=== PATIENT | female | born 1945 | race Caucasian/White ===

== ENCOUNTER 2019-09-23 11:21 | Inpatient (IN) | payer MEDICARE, OTHER ==
[~2019-09-23] VITALS: Ht 152.4 cm; Wt 43.6 kg
[2019-09-23] VITALS (14 sets, daily range): BP systolic 120–172; BP diastolic 68–87; Ht 152.4 cm; Wt 43.6 kg
[2019-09-23] MEDS ORDERED: BAYER CHEWABLE81 MG PO (11:40)
[2019-09-23] MEDS ORDERED: DETROL LA4 MG PO (11:40)
[2019-09-23] MEDS ORDERED: TENORMIN25 MG PO (11:41)
[2019-09-23] MEDS ORDERED: METOPROLOL TART25 MG PO (11:41)
[2019-09-23] MEDS ORDERED: REMERON15 MG PO (11:41)
[2019-09-23] MEDS ORDERED: CYMBALTA30 MG PO (11:41)
[2019-09-23] MEDS ORDERED: CELEBREX 100 M100 MG PO (11:42)
[2019-09-23] MEDS ORDERED: AMBIEN5 MG PO (11:42)
[2019-09-23] MEDS ORDERED: KLOR-CON 1010 MEQ PO (11:43)
--- NOTE | 2019-09-23 13:00 | NUR ---
PT RECEIVED. VSS. DR MONTGOMERY AT BEDSIDE NEW ORDERS RECEIVED. FAMILYAT BEDSIDE GIVEN UDPATE. WILL CONTINUE TO MONITOR
[2019-09-23] MEDS ORDERED: KLONOPIN1 MG PO (13:10)
[2019-09-23] MEDS ORDERED: OXYCONTIN10 MG PO (13:10)
[2019-09-23 15:14] LABS: ANION GAP 15.6 mmol/L (8-16); CALCIUM 9.5 mg/dL (8.5-10.1); CARBON DIOXIDE 26.9 mmol/L (21.0-32.0); CREATININE - SERUM 1.5 mg/dL (0.6-1.3); POTASSIUM - SERUM 3.5 mmol/L (3.5-5.1)
--- NOTE | 2019-09-23 15:20 | NUR ---
DR DICK AT BEDSIDE NEW ORDERS RECEIVED. NO NEW CHANGES WILL CONTINUE TO MONITOR
[2019-09-23 17:12] LABS: ANION GAP 19.7 mmol/L (8-16); CALCIUM 9.8 mg/dL (8.5-10.1); CARBON DIOXIDE 21.6 mmol/L (21.0-32.0); CREATININE - SERUM 1.4 mg/dL (0.6-1.3); POTASSIUM - SERUM 3.3 mmol/L (3.5-5.1)
--- NOTE | 2019-09-23 17:20 | NUR ---
DR WALTON AT BEDSIDE GIVEN UDPATE. NEW ORDERS RECEIVED. VSS WILL CONTINUE TO MONITOR
--- NOTE | 2019-09-23 19:00 | NUR ---
PT REPORT RECEIVED FROM DAY SHIFT NURSE. PT LYING IN BED ON VENTILLATOR. NO PURPOSEFUL MOVEMENTS NOTICED. SHIFT ASSESSMENT COMPLETED. WILL CONTINUE TO MONITOR
--- NOTE | 2019-09-23 19:35 | NUR ---
PT FAMILY MEMEBER CALLED TO CHECK UP ON PT. UPDATE GIVEN
--- NOTE | 2019-09-23 21:00 | NUR ---
PT RESTING IN BED. FAMILY PRESENT AT BEDSIDE. NO QUESTIONS CURRENTLY. PT STILL UNRESPONSIVE WITH NO PURPOSEFUL MOVEMENTS
[2019-09-24] VITALS (10 sets, daily range): BP systolic 110–182; BP diastolic 57–90
--- NOTE | 2019-09-24 02:50 | NUR ---
ANJALI HINOJOSA APRN CALLED REGARDING BP. ORDER RECEIVED FOR ONE TIME DOSE OF LABETOLOL.
--- NOTE | 2019-09-24 03:00 | NUR ---
PT REASSESSMENT COMPLETED. NO VISIBLE SIGNS OF DISTRESS NOTED. LAB IN ROOM DRAWING AM LABS. WILL CONTINUE TO MONITOR
[2019-09-24 04:04] LABS: BASOPHILS 0 % (0-2); EOSINOPHILS 0 % (0-7); HEMOGLOBIN 10.6 g/dL (12-16); IMMATURE GRANULOCYTES 0.3 % (0-5); LYMPHOCYTES 5.2 % (15-50); MCH 29.3 pg (26.0-34.0); MCHC 32.1 g/dL (31.0-37.0); MCV 91.2 fL (80.0-100.0); MEAN PLATELET VOLUME 10.5 fL (7.4-10.4); MONOCYTES 3.9 % (2-11); NEUTROPHILS 90.6 % (40-80); PLATELET COUNT 415 10x3/uL (130-400); RBC 3.62 10x6/uL (4.00-5.40); WBC 14.5 10x3/uL (4.8-10.8)
[2019-09-24 04:15] LABS: APTT 26.2 SECONDS (22.8-39.4); INR 1.13 (0.85-1.17)
[2019-09-24 04:22] LABS: ALBUMIN 3.6 g/dL (3.4-5.0); ANION GAP 19.4 mmol/L (8-16); BILIRUBIN - TOTAL 0.31 mg/dL (0.2-1.3); CALCIUM 9.8 mg/dL (8.5-10.1); CARBON DIOXIDE 25.1 mmol/L (21.0-32.0); MAGNESIUM - SERUM 1.5 mg/dL (1.8-2.4); POTASSIUM - SERUM 3.5 mmol/L (3.5-5.1); PROTEIN - SERUM 8.9 g/dL (6.4-8.2)
[2019-09-24 04:48] LABS: CREATININE - SERUM 1.8 mg/dL (0.6-1.3)
--- NOTE | 2019-09-24 05:00 | NUR ---
PT RESTING IN BED. NO VISIBLE SIGNS OF DISTRESS NOTED. VSS. WILL CONTINUE TO MONITOR
--- NOTE | 2019-09-24 07:17 | NUR ---
REPORT RECIEVED. PATIENT IS SALINE LOCKED. WITHDRAWS TO PAIN. CAN NOT FOLLOW COMMANDS. NO ACUTE DISTRESS. SEE ASSESSMENT. FAMILY CALLED TO SEE WHAT TIME THEY WANTED TO EXTUBATE TO CALL JULIAN AND LET THEM KNOW. THEY STATEDE THEY HAVE NOT AGREED ON A TIME YET BUT WILL BE UP HERE LATER TODAY TO DISCUSS THAT.
--- NOTE | 2019-09-24 07:39 | NUR ---
SPOKE TO IESHA EASTMAN.
[2019-09-24 08:40] LABS: CALCIUM 10.2 mg/dL (8.5-10.1); CARBON DIOXIDE 23.7 mmol/L (21.0-32.0); CREATININE - SERUM 1.7 mg/dL (0.6-1.3); POTASSIUM - SERUM 3.7 mmol/L (3.5-5.1)
--- NOTE | 2019-09-24 09:12 | NUR ---
moprhine order changed to ativan
--- NOTE | 2019-09-24 10:22 | NUR ---
patient is resting with eyes closed. family at bedside.
--- NOTE | 2019-09-24 13:21 | MORECARE ---
CASE MANAGEMENT DISCHARGE SUMMARY PATIENT: SAURAV HORTON HUANG UNIT: [id number] ADM DATE: 09/23/19 AGE: 74 : 43 SEX: F ROOM/BED: D.2302 AUTHOR: RAYSA HERBERT PHYSICIAN: REFERRING PHYSICIAN: JENARO MONTGMOERY MD DATE OF SERVICE: 09/24/19 Discharge Plan Patient Name: SAURAV HORTON Facility: [facility]:[place] : 1945 Planned Disposition: Anticipated Discharge Date: Discharge Date: Expected LOS: Initial Reviewer: [id number] Initial Review Date: 09/23/2019 Generated: 09/24/19 2:21 pm Patient Name: SAURAV HORTON Page 94709 at 1321 All edits/amendments must be made on the electronic document DICTATION DATE: 09/24/19 1321 CARDIOLOGY PHYSICIAN ASSISTANT: DAVID 09/24/19 1321 RPT#: [id number] DC DATE: STATUS: ADM IN [facility] [address] [place] [address] END OF REPORT
--- NOTE | 2019-09-24 13:30 | MORECARE ---
CASE MANAGEMENT DISCHARGE SUMMARY PATIENT: SAURAV HORTON HUANG UNIT: [id number] ADM DATE: 09/23/19 AGE: 74 : 43 SEX: F ROOM/BED: D.2302 AUTHOR: RAYSA HERBERT PHYSICIAN: REFERRING PHYSICIAN: JENARO MONTGOMERY MD DATE OF SERVICE: 09/24/19 Discharge Plan Patient Name: SAURAV HORTON [facility] : 1945 Planned Disposition: Anticipated Discharge Date: Discharge Date: Expected LOS: Initial Reviewer: [id number] Initial Review Date: 09/23/2019 Generated: 09/24/19 2:30 pm Comments DCP- Discharge Planning Updated by [email or web address]: Annie Carnes on 09/24/19 12:[address] CM notified that family had made decision for terminal extubation not interested in Hospice at this point. CM will continue to follow and assist as needed with discharge planning / needs Last DP export: 09/24/19 12:21 Patient Name: SAURAV HORTON Page 70624 at 1330 All edits/amendments must be made on the electronic document DICTATION DATE: 09/24/19 133 [facility] TECHNICIAN: DAVID 09/24/19 1330 RPT#: [id number] DC DATE: STATUS: ADM IN [facility] [address] [place] [address] END OF REPORT
--- NOTE | 2019-09-24 13:50 | MORECARE ---
CASE MANAGEMENT DISCHARGE SUMMARY PATIENT: SAURAV HORTON HUANG UNIT: [id number] ADM DATE: 09/23/19 AGE: 74 : 43 SEX: F ROOM/BED: D.2302 AUTHOR: RAYSA HERBERT PHYSICIAN: REFERRING PHYSICIAN: JENARO MONTGOMERY MD DATE OF SERVICE: 09/24/19 Discharge Plan Patient Name: SAURAV HORTON [facility] : 1945 Planned Disposition: Anticipated Discharge Date: Discharge Date: Expected LOS: Initial Reviewer: [email or web address] Initial Review Date: 09/23/2019 Generated: 09/24/19 2:49 pm Comments DCP- Discharge Planning Updated by [email or web address]: Annie Carnes on 09/24/19 12:[address] CM notified that family had made decision for terminal extubation not interested in Hospice at this point. CM will continue to follow and assist as needed with discharge planning / needs Last DP export: 09/24/19 12:30 Patient Name: SAURAV HORTON Page [id number] at 1350 All edits/amendments must be made on the electronic document DICTATION DATE: 09/24/19 134 TRAFFIC RATE CLERK: DAVID 09/24/19 134 RPT#: [id number] DC DATE: STATUS: ADM IN [facility] [address] [place] [address] END OF REPORT
--- NOTE | 2019-09-24 13:58 | NUR ---
FAMILY REQUESTS TO NOT TAKE EARRINGS OUT. HOME APPROVED.
--- NOTE | 2019-09-24 14:25 | NUR ---
PT ARRIVED TO FLOOR VAI BED. EYES CLOSED, UNRESPONSIVE. FAMILY AT BEDISDE. THEY STATE THEY HAVE NO FURTHER NEEDS AT THIS TIME. ZOE LIMON FROM ICU STATES [facility]INGS ARE TO STAY IN PLACE AND SHE SPOKE WITH HOME IN COUNSELOR AND THEY OK'D FOR THEM TO STAY IN PLACE FOR WHEN SHE EXPIRES. MINE LIMON ALSO STATES RETURN BROCK CATHETER TO ICU WHEN SHE EXPIRES.
--- NOTE | 2019-09-24 20:20 | NUR ---
EVENING ROUNDS COMPLETED. PT UNRESPOSNSIVE. FAMILY AT BEDSIDE. PT TEMP 100.1. ASSIST PT WITH COMFORT CARE AND COOL WASH CLOTH. MORPHINE GIVEN PRIOR TO SHIFT CHANGE. ATIVAN GIVEN AT THIS TIME. BROCK INTACT. NO DRAINAGE NOTED. WILL CTM.
[2019-09-25 04:56] VITALS: BP 152/65
--- NOTE | 2019-09-25 07:41 | NUR ---
BP 197/88. PULSE 129. RR 28. ATIVAN GIVEN PER ORDER. LUZ GALLOWAY NOTIFIED. ABGs ORDERED. WENT IN WITH VIDAL, PREDICTIVE MAINTENANCE TECHNICIAN TO SPEAK WITH DAUGHTER @ BEDSIDE ABOUT THE POC. DAUGHTER STATES SHE WANTS "TO JUST KEEP HER COMFORTABLE". NILESH NOTIFIED ABOUT WISHES. STATED SHE WANTED A HOSPICE CONSULT.
--- NOTE | 2019-09-25 11:46 | MORECARE ---
CASE MANAGEMENT DISCHARGE SUMMARY PATIENT: SAURAV HORTON HUANG UNIT: [id number] ADM DATE: 09/23/19 AGE: 74 : 43 SEX: F ROOM/BED: D.2101 AUTHOR: KEON,DOC PHYSICIAN: REFERRING PHYSICIAN: JENARO MONTGOMERY MD DATE OF SERVICE: 09/25/19 Discharge Plan Patient Name: SAURAV HORTON [facility] [facility] 1945 Planned Disposition: Anticipated Discharge Date: Discharge Date: Expected LOS: Initial Reviewer: [id number] Initial Review Date: 09/23/2019 Generated: 09/25/19 12:46 pm Comments DCP- Discharge Planning Updated by [email or web address]: Annie Carnes on 09/24/19 12:[address] CM notified that family had made decision for terminal extubation not interested in Hospice at this point. CM will continue to follow and assist as needed with discharge planning / needs External Providers External Provider: [facility](provides inp Next Contact Date: 09/25/2019 Service Request Date: Service Type: Resolution: Reviewer: Comments: Last DP export: 09/24/19 12:50 Patient Name: SAURAV HORTON Page 73840 at 1146 All edits/amendments must be made on the electronic document DICTATION DATE: 09/25/19 1146 PATIENT ASSISTANT: DAVID 09/25/19 1146 RPT#: [id number] DC DATE: STATUS: ADM IN [facility] [address] [place] [address] END OF REPORT
--- NOTE | 2019-09-25 12:14 | MORECARE ---
CASE MANAGEMENT DISCHARGE SUMMARY PATIENT: SAURAV HORTON HUANG UNIT: [id number] ADM DATE: 09/23/19 AGE: 74 : 43 SEX: F ROOM/BED: D.2104 AUTHOR: KEON,DOC PHYSICIAN: REFERRING PHYSICIAN: JENARO MONTGOMERY MD DATE OF SERVICE: 09/25/19 Discharge Plan Patient Name: SAURAV HORTON Facility: [facility]:[place] : 1945 Planned Disposition: Hospice Medical Facility Anticipated Discharge Date: 09/25/19 Discharge Date: Expected LOS: 2 Initial Reviewer: [email or web address] Initial Review Date: 09/23/2019 Generated: 09/25/19 1:14 pm Comments DCP- Discharge Planning Updated by [email or web address]: Aleksandr Vargas on 09/25/19 11:[address] Patient Name: SAURAV HORTON Encounter No: [id number] : 1945 Primary Insurance: MEDICARE A & B Anticipated DC Date: 09-25-2019 Planned Disposition: Hospice Medical Facility External Planned Provider: [facility] DCP follow-up note: CM RECEIVED HOSPICE ORDER, SPOKE TO PT'S DAUGHTER, FRANCESCO IN ROOM. CM DISCUSSED HOSPICE ORDER, PROVIDED LISTING OF HOSPICE AGENCIES AND DISCUSSED HOSPICE SERVICES. PT'S DAUGHTER WANTS PT TO STAY HERE WITH HOSPICE. CM EXPLAINED CONTRACT WITH [facility]. CHOICE SIGNED. IMPORTANT MESSAGE FROM MEDICARE PROVIDED AND EXPLAINED. CM SPOKE TO BEDSIDE NURSE WHO ALSO THINKS PT IS INPATIENT HOSPICE APPROPRIATE AT THIS TIME. CM CALLED [facility], , SPOKE TO JULEE WHO WILL SEND NURSE TO EVALUATE NOW. CM FAXED REFERRAL TO [facility] AT [phone]. CM WAITING HOSPICE EVALUATION AND ADMISSION DETERMINATION FROM [facility] FOR INPATIENT HOSPICE. JOSELITO Alvarez DCP- Discharge Planning Updated by [email or web address]: Annie Carnes on 09/24/19 12:[address] CM notified that family had made decision for terminal extubation not interested in Hospice at this point. CM will continue to follow and assist as needed with discharge planning / needs Coverage Notice Reviewer: [id number] - Aleksandr Vargas Notice Issued Date-Time: 09/25/2019 11:20 Notice Type: IM Discharge Notice Notice Delivered To: Family Member Relationship to Patient: Daughter Historic Preservationist Name: FRANCESCO FRANCISCO Delivery Method: HAND - Hand Delivered Concepcion Days: Prior Verbal Notification: Recipient Understood Notice: Yes Recipient Signature: Yes Med Rec Note Co-signed by Attending: Coverage Notice Comment: Reviewer: [id number] Tao Vargas Notice Issued Date-Time: 09/25/2019 11:20 Notice Type: Patient Choice Letter Notice Delivered To: Family Member Relationship to Patient: Daughter Historic Preservationist Name: FRANCESCO FRANCISCO Delivery Method: HAND - Hand Delivered Concepcion Days: Prior Verbal Notification: Recipient Understood Notice: Yes Recipient Signature: Yes Med Rec Note Co-signed by Attending: Coverage Notice Comment: [facility] Last DP export: 09/25/19 10:46 Patient Name: SAURAV HORTON Page 25154 at 1214 All edits/amendments must be made on the electronic document DICTATION DATE: 09/25/19 1213 DIAMOND SAW OPERATOR: DAVID 09/25/19 1213 RPT#: [id number] DC DATE: STATUS: ADM IN [facility] [address] [place] [address] END OF REPORT
[2019-09-25 12:20] VITALS: BP 197/88
[2019-09-25 12:27] VITALS: BP 101/46
--- NOTE | 2019-09-25 13:14 | NUR ---
[facility] HERE. PT BEING DISCHARGED TO HOSPICE. FAMILY AT BEDSIDE MADE AWARE.
[2019-09-25] MEDS ORDERED: DILAUDID INJ2 MG/ML IV (13:31)
[2019-09-25] MEDS ORDERED: ATIVAN2 MG IV (13:32)
--- NOTE | 2019-09-25 15:25 | MORECARE ---
CASE MANAGEMENT DISCHARGE SUMMARY PATIENT: SAURAV HORTON HUANG UNIT: [id number] ADM DATE: 09/23/19 AGE: 74 : 43 SEX: F ROOM/BED: D.2107 AUTHOR: KEON,DOC PHYSICIAN: REFERRING PHYSICIAN: JENARO MONTGOMERY MD DATE OF SERVICE: 09/25/19 Discharge Plan Patient Name: SAURAV HORTON Facility: [facility]:[place] : 1945 Planned Disposition: Hospice Medical Facility Anticipated Discharge Date: 09/25/19 Discharge Date: 09/25/2019 Expected LOS: 2 Initial Reviewer: [id number] Initial Review Date: 09/23/2019 Generated: 09/25/19 4:25 pm Comments DCP- Discharge Planning Updated by [id number]: lAeksandr Vargas on 09/25/19 2:[address] Patient Name: SAURAV HORTON Encounter No: [id number] : 1945 Primary Insurance: MEDICARE A & B Anticipated DC Date: 09-25-2019 Planned Disposition: Hospice Medical Facility External Planned Provider: [facility] DCP follow-up note: CM RECEIVED HOSPICE ORDER, SPOKE TO PT'S DAUGHTER, FRANCESCO IN ROOM. CM DISCUSSED HOSPICE ORDER, PROVIDED LISTING OF HOSPICE AGENCIES AND DISCUSSED HOSPICE SERVICES. PT'S DAUGHTER WANTS PT TO STAY HERE WITH HOSPICE. CM EXPLAINED CONTRACT WITH [facility]. CHOICE SIGNED. IMPORTANT MESSAGE FROM MEDICARE PROVIDED AND EXPLAINED. CM SPOKE TO BEDSIDE NURSE WHO ALSO THINKS PT IS INPATIENT HOSPICE APPROPRIATE AT THIS TIME. CM CALLED [facility], , SPOKE TO JULEE WHO WILL SEND NURSE TO EVALUATE NOW. CM FAXED REFERRAL TO [facility] AT [phone]. CM WAITING HOSPICE EVALUATION AND ADMISSION DETERMINATION FROM [facility] FOR INPATIENT HOSPICE. Aleksandr Vargas, CASE MANAGEMENT Appended by Aleksandr Vargas on 09/25/2019 15:20 LETTER SORTING MACHINE OPERATOR: CM NOTIFIED BY NANCY OF [facility], PT HAS BEEN ACCEPTED FOR INPATIENT HOSPICE ADMISSION. JOSELITO MIJARES DCP- Discharge Planning Updated by [email or web address]: Annie Carnes on 09/24/19 12:[address] CM notified that family had made decision for terminal extubation not interested in Hospice at this point. CM will continue to follow and assist as needed with discharge planning / needs Coverage Notice Reviewer: [id number] Tao Vargas Notice Issued Date-Time: 09/25/2019 11:20 Notice Type: IM Discharge Notice Notice Delivered To: Family Member Relationship to Patient: Daughter Radiologist Diagnostic Name: FRANCESCO FRANCISCO Delivery Method: HAND - Hand Delivered Concepcion Days: Prior Verbal Notification: Recipient Understood Notice: Yes Recipient Signature: Yes Med Rec Note Co-signed by Attending: Coverage Notice Comment: Reviewer: [id number] Vargas Notice Issued Date-Time: 09/25/2019 11:20 Notice Type: Patient Choice Letter Notice Delivered To: Family Member Relationship to Patient: Daughter Radiologist Diagnostic Name: FRANCESCO FRANCISCO Delivery Method: HAND - Hand Delivered Concepcion Days: Prior Verbal Notification: Recipient Understood Notice: Yes Recipient Signature: Yes Med Rec Note Co-signed by Attending: Coverage Notice Comment: [facility] Last DP export: 09/25/19 11:14 Patient Name: SAURAV HORTON Page [id number] at 1525 All edits/amendments must be made on the electronic document DICTATION DATE: 09/25/19 1524 ORGANIC CHEMIST: DAVID 09/25/19 1524 RPT#: [id number] DC DATE:09/25/19 STATUS: DIS IN [facility] [address] [place] [address] END OF REPORT
== END 2019-09-25 14:00 | disposition hospice, inpatient (51) | DRG 64 ==
LOC: D.ER 11:21 → D.ICU 12:00 → D.M2 09-24 14:14
PROVIDERS: Internal Medicine Pulmonary Disease; ADMIT Internal Medicine Nephrology; ATTEND Internal Medicine Nephrology
PROC: 5A1945Z Respiratory Ventilation, 24-96 Consecutive Hours (ICD-10-PCS; principal; 2019-09-23)
DX: I63.9 Cerebral infarction, unspecified (principal); G93.6 Cerebral edema; J96.01 Acute respiratory failure with hypoxia; R40.2112 Coma scale, eyes open, never, at arrival to emergency department; R40.2312 Coma scale, best motor response, none, at arrival to emergency department; R40.2212 Coma scale, best verbal response, none, at arrival to emergency department; G93.49 Other encephalopathy; G91.1 Obstructive hydrocephalus; R40.3 Persistent vegetative state; I10 Essential (primary) hypertension; M81.0 Age-related osteoporosis without current pathological fracture; Z51.5 Encounter for palliative care

== ENCOUNTER 2019-09-25 14:07 | Inpatient (IN) | payer OTHER ==
[~2019-09-25] VITALS: Ht 152.4 cm; Wt 43.6 kg
[~2019-09-25 14:07] MED LIST: AMBIEN5 MG PO; ATIVAN2 MG IV; BAYER CHEWABLE81 MG PO; CELEBREX 100 M100 MG PO; CYMBALTA30 MG PO; DETROL LA4 MG PO; DILAUDID INJ2 MG/ML IV; KLONOPIN1 MG PO; KLOR-CON 1010 MEQ PO; METOPROLOL TART25 MG PO; OXYCONTIN10 MG PO; REMERON15 MG PO; TENORMIN25 MG PO
--- NOTE | 2019-09-25 15:18 | MORECARE ---
CASE MANAGEMENT DISCHARGE SUMMARY PATIENT: SAURAV HORTON HUANG UNIT: [id number] ADM DATE: 09/25/19 AGE: 74 : 43 SEX: F ROOM/BED: D.2101 AUTHOR: RAYSA HERBERT PHYSICIAN: REFERRING PHYSICIAN: KHARI BATRES MD DATE OF SERVICE: 09/25/19 Discharge Plan Patient Name: SAURAV HORTON Facility: [facility]:[place] : 1945 Planned Disposition: Anticipated Discharge Date: Discharge Date: Expected LOS: Initial Reviewer: [email or web address] Initial Review Date: 09/25/2019 Generated: 09/25/19 4:18 pm Patient Name: SAURAV HORTON Page 29658 at 1518 All edits/amendments must be made on the electronic document DICTATION DATE: 09/25/191516 BILLET HEATER: DAVID 09/25/191516 RPT#: [id number] DC DATE: STATUS: ADM IN [facility] [address] [place] [address] END OF REPORT
--- NOTE | 2019-09-25 15:25 | MORECARE ---
CASE MANAGEMENT DISCHARGE SUMMARY PATIENT: SAURAV HORTON HUANG UNIT: [id number] ADM DATE: 09/25/19 AGE: 74 : 43 SEX: F ROOM/BED: D.2101 AUTHOR: RAYSA HERBERT PHYSICIAN: REFERRING PHYSICIAN: KHARI BATRES MD DATE OF SERVICE: 09/25/19 Discharge Plan Patient Name: SUARAV HORTON Facility: [facility]:[place] : 1945 Planned Disposition: Anticipated Discharge Date: Discharge Date: Expected LOS: Initial Reviewer: [email or web address] Initial Review Date: 09/25/2019 Generated: 09/25/19 4:25 pm Comments DCP- Discharge Planning Updated by [email or web address]: Aleksandr Vargas on 09/25/19 2:[address] Patient Name: SAURAV HORTON Admission Status: Urgent Accout number: [id number] Admission Date: 09-25-2019 : 1945 Admission Diagnosis: Attending: KHARI BTARES Current LOS: 1 Anticipated DC Date: Planned Disposition: Primary Insurance: [facility] Discharge Planning Comments: PT ADMITTED TO [facility] INPATIENT. PT TO RECEIVE ALL CASE MANAGEMENT SERVICES FROM [facility]. Insole Lip Turner: Aleksandr Vargas Last DP export: 09/25/19 2:18 Patient Name: SAURAV HORTON Page 98753 at 1525 All edits/amendments must be made on the electronic document DICTATION DATE: 09/25/19 152 FOOD SERVICE KITCHEN SUPERVISOR: DAVID 09/25/19 1525 RPT#: [id number] DC DATE: STATUS: ADM IN [facility] [address] [place] [address] END OF REPORT
[2019-09-25 15:32] VITALS: BP 101/46; BMI 18.7
[2019-09-25 15:58] VITALS: BP 95/50
--- NOTE | 2019-09-25 16:00 | NUR ---
PT FAMILY MEMBER WALKED OUT IN THE HALLWAY AND STATED PT WAS NOT BREATHING. UPON WALKING IN ROOM PT TOOK TWO MORE BREATHS AND HAD A PULSE FOR APPROX. 2 MINUTES AFTER. ULISES @ BEDSIDE. TIME OF 1606. IESHA NOTIFIED OF TIME OF . [facility] NURSE NOTIFIED WELL.
--- NOTE | 2019-09-25 18:26 | NUR ---
IV DC/ WITH CATHETER TIP INTACT. BROCK REMOVED AND CRITICORE RETURNED BACK TO ICU. POST MORTEM CARE PERFORMED. PT WAITING ON HOME ARRIVAL.
--- NOTE | 2019-09-25 19:30 | NUR ---
BEDSIDE REPORT RECEIVED FROM DAY SHIFT, PT CARE ASSUMED. [facility] NURSE TO ROOM. NATHALY PARK, HOME ATHLETIC COACH TO ROOM, PAPERWORK SIGNED AND PLACED IN CHART. PT'S BELONGINGS SENT WITH PT. PT OFF FLOOR WITH HOME ATHLETIC COACH VIA STRETCHER.
[2019-09-26 07:53] VITALS: Ht 152.4 cm; Wt 43.6 kg
--- NOTE | 2019-09-26 08:46 | MORECARE ---
CASE MANAGEMENT DISCHARGE SUMMARY PATIENT: SAURAV HORTON HUANG UNIT: [id number] ADM DATE: 09/25/19 AGE: 74 : 43 SEX: F ROOM/BED: D.2101 AUTHOR: RAYSA HERBERT PHYSICIAN: REFERRING PHYSICIAN: KHARI BATRES MD DATE OF SERVICE: 09/26/19 Discharge Plan Patient Name: SAURAV HORTON Facility: [facility]:[place] : 1945 Planned Disposition: Anticipated Discharge Date: 09/25/19 Discharge Date: 09/25/2019 Expected LOS: 1 Initial Reviewer: [id number] Initial Review Date: 09/25/2019 Generated: 09/26/19 9:46 am Comments DCP- Discharge Planning Updated by [email or web address]: Aleksandr Vargas on 09/25/19 2:[address] Patient Name: SAURAV HORTON Admission Status: Urgent Accout number: [id number] Admission Date: 09-25-2019 : 1945 Admission Diagnosis: Attending: KHARI BATRES Current LOS: 1 Anticipated DC Date: Planned Disposition: Primary Insurance: [facility] Discharge Planning Comments: PT ADMITTED TO [facility] INPATIENT. PT TO RECEIVE ALL CASE MANAGEMENT SERVICES FROM [facility]. [employer] Specialist: Aleksandr Vargas Last DP export: 09/25/19 2:25 Patient Name: SAURAV HORTON Page 19682 at 0846 All edits/amendments must be made on the electronic document DICTATION DATE: 09/26/19845 PLANT OPERATOR/SHIFT SUPERVISOR: DAVID 09/26/19845 RPT#: [id number] DC DATE:09/25/19 STATUS: DIS IN [facility] [address] [place] [address] END OF REPORT
== END 2019-09-25 19:30 | DRG 951 ==
LOC: D.M2 14:07
PROVIDERS: ADMIT Legal Medicine; ATTEND Legal Medicine
DX: Z51.5 Encounter for palliative care (principal)